=== PATIENT | female | born 1950 | race Asian ===

== ENCOUNTER → 2022-01-25 | Outpatient (CLI) | payer MEDICARE ==
[~2022-01-25] MED LIST: IOHEXOL 350 MG/ML 100ML INFUS..BTL IV ONE
== END | disposition home or self-care (01) ==
LOC: RAH 08:27 → EDBD 09:00
PROVIDERS: ATTEND Internal Medicine Gastroenterology
DX: N28.1 Cyst of kidney, acquired (principal); I70.0 Atherosclerosis of aorta
CPT/HCPCS: 74178; Q9967

== ENCOUNTER → 2024-12-24 | Outpatient (CLI) | payer MEDICARE ==
--- NOTE | 2024-12-24 11:56 | HMCIMG ---
DEXA BONE DENSITY SURVEY HISTORY: Osteoporosis COMPARISON: None FINDINGS: Bone densitometry study was performed. Bone mineral density of the lumbar spine is 0.637 gram per centimeter square which corresponds to a T score of -3.7 and a Z score of -1.5. Bone mineral density of the left hip is 0.71 grams per centimeter square which corresponds to a T score of -1.8 and a Z score of -0.2. IMPRESSION: 1. 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
--- NOTE | 2024-12-24 12:04 | HMCIMG ---
MAMMO SCREENING BILATERAL HISTORY: Screening mammogram. COMPARISON: None TECHNIQUE: Bilateral screening mammogram with CAD was performed with craniocaudal and mediolateral oblique projections. FINDINGS: The breasts are extremely dense which lowers the sensitivity of mammogram. There is no evidence of a dominant mass, or suspicious microcalcification. There is no evidence of nipple retraction or skin thickening. IMPRESSION: 1. Stable mammogram. Patient was entered into a reminder system with a target due date for their next mammogram. BI-RADS: CATEGORY 2: BENIGN FINDINGS Recommend monthly self breast exam as well as annual clinical examination. A negative x-ray should not delay biopsy if a dominant or clinically suspicious mass is present, since 8-10% of cancers are not identified by mammography. Dense breasts particularly, may obscure an underlying neoplasm. Some of these may be detected clinically and therefore, clinical examination is an essential part of breast evaluation.
== END | disposition home or self-care (01) ==
LOC: RAH 10:19
PROVIDERS: ATTEND Family Medicine
DX: Z12.31 Encounter for screening mammogram for malignant neoplasm of breast (principal); Z13.820 Encounter for screening for osteoporosis; R92.30 Dense breasts, unspecified; M81.0 Age-related osteoporosis without current pathological fracture; M85.88 Other specified disorders of bone density and structure, other site; Z78.0 Asymptomatic menopausal state
CPT/HCPCS: 77067; 77080

== ENCOUNTER → 2025-01-13 | Outpatient (CLI) | payer MEDICARE ==
--- NOTE | 2025-01-13 11:06 | HMCIMG ---
MRA BRAIN WITHOUT CONTRAST INDICATION: Headache, unspecified TECHNIQUE: Noncontrast 3-D time of flight imaging of the intracranial arterial vasculature. Source and reconstructed images were also provided for interpretation. COMPARISON: None FINDINGS: The intracranial internal carotid arteries are patent without evidence for high grade stenosis or aneurysm. The visualized proximal ophthalmic arteries are patent without evidence for aneurysm. The anterior cerebral, middle cerebral, and posterior cerebral arteries are widely patent without evidence for high grade stenosis or aneurysm. The basilar artery is patent without evidence for high grade stenosis or aneurysm. The distal vertebral arteries are patent without evidence for high grade stenosis or aneurysm. IMPRESSION: No evidence for aneurysm, high-grade flow-rate limiting stenosis or vascular malformation.
== END | disposition home or self-care (01) ==
LOC: RAH 09:12
PROVIDERS: ATTEND Psychiatry & Neurology Neurology
DX: R51.9 Headache, unspecified (principal); M54.12 Radiculopathy, cervical region; M54.16 Radiculopathy, lumbar region; G44.89 Other headache syndrome
CPT/HCPCS: 70544